=== PATIENT | male | born 2000 ===

== ENCOUNTER 2022-03-22 21:16 | Emergency (ER) | payer BC, SELFPAY ==
[2022-03-22 21:39] VITALS: BP 146/80; PULSE 87; RESP 16; TEMP 36.8; O2SAT 96
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
[2022-03-22] MEDS: Lidocaine 2% Viscous 15 ML CUP UD (22:44)
== END 2022-03-22 23:21 | disposition home or self-care (01) ==
PROVIDERS: Emergency Provider Student in an Organized Health Care Education/Training Program
DX: H66.93 Otitis media, unspecified, bilateral (principal)
CPT/HCPCS: 99283; 99284